=== PATIENT | female | born 1995 | race Caucasian/White ===

== ENCOUNTER 2017-08-05 12:21 | Inpatient (IN) | payer MEDICAID, OTHER ==
[~2017-08-05] VITALS: Ht 165.1 cm; Wt 57.5 kg
[2017-08-05 08:35] VITALS: BP 127/72
[2017-08-05 13:15] LABS: BASOPHILS % (AUTO) 0 % (0-1); EOSINOPHILS # (AUTO) 0.1 X10'3 (0-0.9); EOSINOPHILS % (AUTO) 0.4 % (0-6); HEMATOCRIT 36.1 % (35.0-45.0); HEMOGLOBIN 12.5 g/dl (12.0-16.0); MEAN CORPUSCULAR HEMOGLOBIN 28.5 PG (27.0-31.0); MEAN CORPUSCULAR HGB CONC 34.7 % (33.0-36.5); MEAN CORPUSCULAR VOLUME 82.2 FL (78-98); MEAN PLATELET VOLUME 7.7 FL (7.4-10.4); MONOCYTES % (AUTO) 3.7 % (2-12); NEUTROPHILS # (AUTO) 23.9 X10'3 (1.8-7.7); NEUTROPHILS % (AUTO) 91.9 % (42-75); PLATELET COUNT 275 X10'3 (140-440); RED BLOOD COUNT 4.39 X10'6 (4.20-5.60); RED CELL DISTRIBUTION WIDTH 13.8 % (11.5-14.5)
[2017-08-05 13:16] LABS: COLOR,URINE YELLOW (Yellow); GLUCOSE, URINE NEGATIVE (Neg); LEUKOCYTE ESTERASE ,URINE NEGATIVE (Neg); NITRITES, URINE NEGATIVE (Neg); PH,URINE 5.5 (4.8-8.0); UROBILINOGEN,URINE 0.2 E.U/dL (0.2-1.0)
[2017-08-05 13:22] LABS: URINE HCG NEGATIVE (NEG)
[2017-08-05 13:24] LABS: INR 1.2 INR; PROTHROMBIN TIME 12.2 SECONDS (9.0-12.0)
[2017-08-05 13:29] LABS: ALANINE AMINOTRANSFERASE 19 U/L (12-78); ALBUMIN 3.7 G/DL (3.4-5.0); ALBUMIN/GLOBULIN RATIO 0.8 (1.1-1.5); ALKALINE PHOSPHATASE 59 IU/L (46-116); ANION GAP 13 (8-16); ASPARTATE AMINO TRANSFERASE 11 U/L (10-37); BILIRUBIN,TOTAL 0.4 MG/DL (0.1-1.0); BLOOD UREA NITROGEN 11 MG/DL (7-18); BUN/CREATININE RATIO 8.8 (6.6-38.0); CALCIUM 9.1 MG/DL (8.5-10.1); CHLORIDE 99 MMOL/L (99-107); CREATININE 1.25 MG/DL (0.40-0.90); GLUCOSE 125 MG/DL (70-104); POTASSIUM 3.6 MMOL/L (3.5-5.1); SODIUM 138 MMOL/L (135-145); TOTAL CARBON DIOXIDE 25.7 MMOL/L (24-32); TOTAL PROTEIN 8.4 G/DL (6.4-8.2); eGFR 53 ML/MIN
[2017-08-05 13:32] LABS: CLARITY,URINE CLOUDY (Clear); KETONES,URINE 15 mg/dl (Neg); OCCULT BLOOD,URINE SMALL (Neg); PROTEIN,URINE 100 mg/dl (Neg)
[2017-08-05 13:40] LABS: UA COLLECTION TYPE CLN CATCH MIDSTREAM
[2017-08-05 13:41] LABS: MUCUS STRANDS MANY /LPF (Neg); SQUAMOUS EPITHELIAL CELL,UR MANY /LPF (FEW)
[2017-08-05 13:42] LABS: FINE GRANULAR CAST 0-3 /LPF (NEGATIVE)
[2017-08-05 13:43] LABS: BACTERIA,URINE 2+ /HPF (Neg)
[2017-08-05 13:44] LABS: RBC,URINE 0-2 /HPF (0-2); WBC CLUMPS,URINE FEW /HPF (NEGATIVE)
[2017-08-05] MEDS ORDERED: normal saline 1000ML IV soln IV ONE (13:55)
[2017-08-05] MEDS ORDERED: CefTRIAXone 2gm/D5W 50ml 50 ML IV ONE (13:55)
[2017-08-05] MEDS ORDERED: proCHLORperazine 10 MG/2 ml inj IV ONE (14:00)
[2017-08-05] MEDS ORDERED: morphine 10mg/ml inj. IV ONE (14:00)
[2017-08-05] MEDS ORDERED: morphine 4 MG/ML inj SYRINge IV ONE (14:00)
[2017-08-05] MEDS ORDERED: acetaminophen 325mg tablet PO ONE (14:30)
[2017-08-05 14:50] LABS: PLATELET ESTIMATE NORMAL; TOTAL CELLS COUNTED 100
[2017-08-05] MEDS ORDERED: NO HOME MEDS (15:26)
[2017-08-05 16:32] LABS: CLARITY,URINE CLEAR (Clear); COLOR,URINE STRAW (Yellow); GLUCOSE, URINE NEGATIVE (Neg); KETONES,URINE NEGATIVE (Neg); LEUKOCYTE ESTERASE ,URINE TRACE (Neg); NITRITES, URINE NEGATIVE (Neg); OCCULT BLOOD,URINE TRACE-INTACT (Neg); PROTEIN,URINE NEGATIVE (Neg); UROBILINOGEN,URINE 0.2 E.U/dL (0.2-1.0)
[2017-08-05 16:33] LABS: UA COLLECTION TYPE CLN CATCH MIDSTREAM
[2017-08-05 16:44] LABS: BACTERIA,URINE FEW /HPF (Neg); MUCUS STRANDS NONE SEEN /LPF (Neg); RBC,URINE 0-2 /HPF (0-2); SQUAMOUS EPITHELIAL CELL,UR FEW /LPF (FEW)
[2017-08-05] MEDS ORDERED: acetaminophen 325mg tablet PO PRN (17:20)
[2017-08-05] MEDS ORDERED: magnesium hydroxide 30ml (MOM) UD suspension PO PRN (17:20)
[2017-08-05] MEDS ORDERED: mag hydrox/Alum hydrox/simeth 30ml oral suspension PO PRN (17:20)
[2017-08-05] MEDS: normal saline 1000ml 1,000 ML IV SCH (17:44)
[2017-08-05] MEDS ORDERED: normal saline 1000ml 1,000 ML IVB ONE (19:20)
[2017-08-05] MEDS ORDERED: normal saline 1000ml 1,000 ML IV ONE (19:20)
[2017-08-05 19:59] LABS: URINE AMPHETAMINE SCREEN NEGATIVE (Neg); URINE BARBITUATE SCREEN NEGATIVE (Neg); URINE BENZODIAZEPINES SCREEN NEGATIVE (Neg); URINE CANNABINOID SCREEN POSITIVE (Neg); URINE COCAINE SCREEN NEGATIVE (Neg); URINE METHADONE SCREEN NEGATIVE (Neg); URINE OPIATE SCREEN NEGATIVE (Neg); URINE PHENCYCLIDINE SCREEN NEGATIVE (Neg)
[2017-08-05 20:07] LABS: CREATINE KINASE 41 U/L (26-192); LIPASE < 50 U/L (73-393); MAGNESIUM 1.5 MG/DL (1.5-2.4); PHOSPHORUS 2.2 MG/DL (2.3-4.5)
[2017-08-05] MEDS: HYDROcodone/acetaminophen 5mg/325mg tablet PO PRN (21:28)
[2017-08-05 22:00] VITALS: BP 124/66
[2017-08-05] MEDS ORDERED: dextrose 5% water 500ml 500 ML IV ONE (22:40)
[2017-08-05] MEDS ORDERED: normal saline 500ml IV soln 500 ML IV ONE ×2 (23:10→23:35)
[2017-08-06] MEDS: normal saline 1000ml 1,000 ML IV SCH ×2 (00:02→13:18)
[2017-08-06 01:43] VITALS: BP 102/68
[2017-08-06] MEDS: acetaminophen 325mg tablet PO PRN ×2 (02:13→08:43)
[2017-08-06] MEDS: HYDROcodone/acetaminophen 5mg/325mg tablet PO PRN ×3 (03:21→20:35)
[2017-08-06 05:52] LABS: BASOPHILS % (AUTO) 0.2 % (0-1); EOSINOPHILS % (AUTO) 0 % (0-6); HEMATOCRIT 27.1 % (35.0-45.0); HEMOGLOBIN 9.3 g/dl (12.0-16.0); LYMPHOCYTES # (AUTO) 1.3 X10'3 (1.1-4.8); LYMPHOCYTES % (AUTO) 7.5 % (21-51); MEAN CORPUSCULAR HEMOGLOBIN 28.1 PG (27.0-31.0); MEAN CORPUSCULAR HGB CONC 34.2 % (33.0-36.5); MEAN CORPUSCULAR VOLUME 82.3 FL (78-98); MEAN PLATELET VOLUME 8.7 FL (7.4-10.4); MONOCYTES # (AUTO) 1.8 X10'3 (0-0.9); MONOCYTES % (AUTO) 10.5 % (2-12); NEUTROPHILS # (AUTO) 14.1 X10'3 (1.8-7.7); NEUTROPHILS % (AUTO) 81.8 % (42-75); PLATELET COUNT 184 X10'3 (140-440); RED BLOOD COUNT 3.29 X10'6 (4.20-5.60); RED CELL DISTRIBUTION WIDTH 13.7 % (11.5-14.5); WHITE BLOOD COUNT 17.3 X10'3 (4.5-11.0)
[2017-08-06 06:00] VITALS: BP 108/67
[2017-08-06 06:16] LABS: ALBUMIN 2.5 G/DL (3.4-5.0); ANION GAP 11 (8-16); BLOOD UREA NITROGEN 5 MG/DL (7-18); BUN/CREATININE RATIO 5.6 (6.6-38.0); CALCIUM 7.5 MG/DL (8.5-10.1); CHLORIDE 106 MMOL/L (99-107); GLUCOSE 111 MG/DL (70-104); POTASSIUM 3.3 MMOL/L (3.5-5.1); SODIUM 138 MMOL/L (135-145); TOTAL CARBON DIOXIDE 21.5 MMOL/L (24-32); eGFR 78 ML/MIN
[2017-08-06 06:50] VITALS: BP 108/67
[2017-08-06] MEDS: ondansetron/PF 4mg/2ml inj IV PRN ×2 (07:24→13:02)
[2017-08-06 07:51] LABS: PLATELET ESTIMATE NORMAL; TOTAL CELLS COUNTED 100
[2017-08-06] MEDS ORDERED: potassium Cl 20 mEq SR tablet PO PRN (08:00)
[2017-08-06] MEDS ORDERED: CefTRIAXone 2gm/D5W 50ml 50 ML IV SCH (08:00)
[2017-08-06] MEDS ORDERED: potassium Cl 40MEQ/NS 500ml 500 ML IV PRN ×2 (08:00)
[2017-08-06 10:00] VITALS: BP 103/55
[2017-08-06] MEDS: potassium Cl 20 mEq SR tablet PO PRN ×3 (10:06→19:14)
[2017-08-06] MEDS ORDERED: pantoprazole 40mg Tablet.DR PO ONE (16:57)
[2017-08-06] MEDS: ibuprofen 200mg tablet PO PRN (17:13)
[2017-08-06] MEDS: proCHLORperazine 10 MG/2 ml inj IV PRN (17:13)
[2017-08-06 18:00] VITALS: BP 111/72
[2017-08-06] MEDS: lactobacillus rhamnosus 10,000 MMU CELLS/CAPSULE PO SCH (19:14)
[2017-08-06 22:00] VITALS: BP 90/55
[2017-08-07] MEDS: normal saline 1000ml 1,000 ML IV SCH ×3 (00:26→20:19)
[2017-08-07] MEDS: HYDROcodone/acetaminophen 5mg/325mg tablet PO PRN ×3 (04:00→17:21)
[2017-08-07] MEDS: ibuprofen 200mg tablet PO PRN ×2 (05:29→20:24)
[2017-08-07 06:00] VITALS: BP 124/72
[2017-08-07] MEDS: acetaminophen 325mg tablet PO PRN (06:48)
[2017-08-07] MEDS: pantoprazole 40mg Tablet.DR PO SCH (06:48)
[2017-08-07 07:05] LABS: BASOPHILS % (AUTO) 0.2 % (0-1); EOSINOPHILS # (AUTO) 0.1 X10'3 (0-0.9); EOSINOPHILS % (AUTO) 0.7 % (0-6); HEMATOCRIT 30.2 % (35.0-45.0); HEMOGLOBIN 10.3 g/dl (12.0-16.0); LYMPHOCYTES # (AUTO) 1.1 X10'3 (1.1-4.8); LYMPHOCYTES % (AUTO) 6.8 % (21-51); MEAN CORPUSCULAR HEMOGLOBIN 28.2 PG (27.0-31.0); MEAN CORPUSCULAR HGB CONC 34.1 % (33.0-36.5); MEAN CORPUSCULAR VOLUME 82.9 FL (78-98); MEAN PLATELET VOLUME 8.9 FL (7.4-10.4); MONOCYTES # (AUTO) 0.8 X10'3 (0-0.9); MONOCYTES % (AUTO) 5.3 % (2-12); NEUTROPHILS # (AUTO) 13.8 X10'3 (1.8-7.7); PLATELET COUNT 210 X10'3 (140-440); RED BLOOD COUNT 3.65 X10'6 (4.20-5.60); RED CELL DISTRIBUTION WIDTH 14.6 % (11.5-14.5); WHITE BLOOD COUNT 15.9 X10'3 (4.5-11.0)
[2017-08-07 07:17] LABS: ALBUMIN 2.5 G/DL (3.4-5.0); ANION GAP 10 (8-16); BLOOD UREA NITROGEN 7 MG/DL (7-18); BUN/CREATININE RATIO 8.8 (6.6-38.0); CALCIUM 8.6 MG/DL (8.5-10.1); CHLORIDE 107 MMOL/L (99-107); GLUCOSE 104 MG/DL (70-104); SODIUM 140 MMOL/L (135-145); TOTAL CARBON DIOXIDE 23.4 MMOL/L (24-32); eGFR 89 ML/MIN
[2017-08-07] MEDS: lactobacillus rhamnosus 10,000 MMU CELLS/CAPSULE PO SCH ×2 (07:24→20:15)
[2017-08-07] MEDS: ondansetron/PF 4mg/2ml inj IV PRN (07:24)
[2017-08-07] MEDS: CefTRIAXone inj 2,000 MG in normal saline 100ml IV soln 100 ML IV SCH (07:24)
[2017-08-07] MEDS: proCHLORperazine 10 MG/2 ml inj IV PRN ×3 (08:51→22:21)
[2017-08-07] MEDS: diatr meglu/diatrizoate 30ml oral sol.-(3 dose) bottle PO SCH ×3 (09:50→16:00)
[2017-08-07 10:00] VITALS: BP 117/68
[2017-08-07 10:04] LABS: TOTAL CELLS COUNTED 100
[2017-08-07 10:05] LABS: PLATELET ESTIMATE NORMAL; TOXIC GRANULATION 1+
[2017-08-07] MEDS ORDERED: diatr meglu/diatrizoate 30ml oral sol.-(3 dose) bottle PO SCH ×2 (12:00)
[2017-08-07 14:27] VITALS: BP 119/69
[2017-08-07] MEDS ORDERED: iohexol 300mg/ml 100ml inj. ONE (15:54)
[2017-08-07 18:00] VITALS: BP 123/80
[2017-08-07 22:00] VITALS: BP 120/83
[2017-08-08] MEDS: HYDROcodone/acetaminophen 5mg/325mg tablet PO PRN ×3 (00:15→16:49)
[2017-08-08 02:00] VITALS: BP 126/78
[2017-08-08] MEDS: proCHLORperazine 10 MG/2 ml inj IV PRN (04:53)
[2017-08-08] MEDS: normal saline 1000ml 1,000 ML IV SCH (05:00)
[2017-08-08 05:49] LABS: BASOPHILS % (AUTO) 0.4 % (0-1); EOSINOPHILS # (AUTO) 0.4 X10'3 (0-0.9); EOSINOPHILS % (AUTO) 3.2 % (0-6); HEMATOCRIT 30.6 % (35.0-45.0); HEMOGLOBIN 10.4 g/dl (12.0-16.0); LYMPHOCYTES # (AUTO) 1.9 X10'3 (1.1-4.8); LYMPHOCYTES % (AUTO) 15.9 % (21-51); MEAN CORPUSCULAR HEMOGLOBIN 28.1 PG (27.0-31.0); MEAN CORPUSCULAR HGB CONC 33.9 % (33.0-36.5); MEAN CORPUSCULAR VOLUME 82.9 FL (78-98); MEAN PLATELET VOLUME 8.7 FL (7.4-10.4); MONOCYTES # (AUTO) 0.9 X10'3 (0-0.9); MONOCYTES % (AUTO) 7.6 % (2-12); NEUTROPHILS # (AUTO) 8.8 X10'3 (1.8-7.7); NEUTROPHILS % (AUTO) 72.9 % (42-75); PLATELET COUNT 242 X10'3 (140-440); RED CELL DISTRIBUTION WIDTH 14.6 % (11.5-14.5); WHITE BLOOD COUNT 12.1 X10'3 (4.5-11.0)
[2017-08-08 06:00] VITALS: BP 122/77
[2017-08-08 06:28] LABS: ALBUMIN 2.5 G/DL (3.4-5.0); ANION GAP 15 (8-16); BLOOD UREA NITROGEN 5 MG/DL (7-18); BUN/CREATININE RATIO 7.6 (6.6-38.0); CALCIUM 8.9 MG/DL (8.5-10.1); CHLORIDE 106 MMOL/L (99-107); CREATININE 0.66 MG/DL (0.40-0.90); GLUCOSE 81 MG/DL (70-104); POTASSIUM 3.5 MMOL/L (3.5-5.1); SODIUM 142 MMOL/L (135-145); TOTAL CARBON DIOXIDE 20.8 MMOL/L (24-32); eGFR > 90 ML/MIN
[2017-08-08] MEDS: lactobacillus rhamnosus 10,000 MMU CELLS/CAPSULE PO SCH ×2 (08:51→20:00)
[2017-08-08] MEDS: ibuprofen 200mg tablet PO PRN (08:51)
[2017-08-08] MEDS: pantoprazole 40mg Tablet.DR PO SCH (08:51)
[2017-08-08] MEDS: CefTRIAXone inj 2,000 MG in normal saline 100ml IV soln 100 ML IV SCH (09:17)
[2017-08-08] MEDS: doxycycline hyclate 100mg tablet.DR PO SCH ×2 (09:17→16:49)
[2017-08-08 10:00] VITALS: BP 129/75
[2017-08-08] MEDS: metoclopramide 10mg tablet PO SCH ×2 (13:32→16:48)
[2017-08-08 15:00] VITALS: BP 116/77
[2017-08-08] MEDS: Potassium Cl inj 10 MEQ in normal saline 1000ml 1,000 ML IV SCH (16:49)
[2017-08-08 18:00] VITALS: BP 138/86
[2017-08-08] MEDS: ondansetron/PF 4mg/2ml inj IV PRN (20:53)
[2017-08-08 22:00] VITALS: BP 130/81
[2017-08-08] MEDS: acetaminophen 325mg tablet PO PRN (22:27)
[2017-08-09] MEDS: HYDROcodone/acetaminophen 5mg/325mg tablet PO PRN (03:41)
[2017-08-09] MEDS: ondansetron/PF 4mg/2ml inj IV PRN (04:23)
[2017-08-09] MEDS: Potassium Cl inj 10 MEQ in normal saline 1000ml 1,000 ML IV SCH (04:27)
[2017-08-09 05:33] LABS: BASOPHILS % (AUTO) 0.3 % (0-1); EOSINOPHILS # (AUTO) 0.3 X10'3 (0-0.9); EOSINOPHILS % (AUTO) 4.7 % (0-6); HEMATOCRIT 24.9 % (35.0-45.0); HEMOGLOBIN 8.5 g/dl (12.0-16.0); LYMPHOCYTES # (AUTO) 1.4 X10'3 (1.1-4.8); LYMPHOCYTES % (AUTO) 21.5 % (21-51); MEAN CORPUSCULAR HEMOGLOBIN 28.1 PG (27.0-31.0); MEAN CORPUSCULAR HGB CONC 34.1 % (33.0-36.5); MEAN CORPUSCULAR VOLUME 82.5 FL (78-98); MEAN PLATELET VOLUME 7.7 FL (7.4-10.4); MONOCYTES # (AUTO) 0.7 X10'3 (0-0.9); MONOCYTES % (AUTO) 10.1 % (2-12); NEUTROPHILS # (AUTO) 4.1 X10'3 (1.8-7.7); NEUTROPHILS % (AUTO) 63.4 % (42-75); PLATELET COUNT 233 X10'3 (140-440); RED BLOOD COUNT 3.02 X10'6 (4.20-5.60); RED CELL DISTRIBUTION WIDTH 14.4 % (11.5-14.5); WHITE BLOOD COUNT 6.5 X10'3 (4.5-11.0)
[2017-08-09 06:13] LABS: ALBUMIN 2.3 G/DL (3.4-5.0); ANION GAP 11 (8-16); BLOOD UREA NITROGEN 3 MG/DL (7-18); BUN/CREATININE RATIO 4.4 (6.6-38.0); CALCIUM 8.4 MG/DL (8.5-10.1); CHLORIDE 106 MMOL/L (99-107); CREATININE 0.68 MG/DL (0.40-0.90); GLUCOSE 103 MG/DL (70-104); POTASSIUM 3.3 MMOL/L (3.5-5.1); SODIUM 140 MMOL/L (135-145); eGFR > 90 ML/MIN
[2017-08-09 06:34] VITALS: BP 133/88
[2017-08-09] MEDS: doxycycline hyclate 100mg tablet.DR PO SCH (07:23)
[2017-08-09] MEDS: metoclopramide 10mg tablet PO SCH (07:23)
[2017-08-09] MEDS: pantoprazole 40mg Tablet.DR PO SCH (07:24)
[2017-08-09] MEDS: lactobacillus rhamnosus 10,000 MMU CELLS/CAPSULE PO SCH (07:25)
[2017-08-09] MEDS: CefTRIAXone inj 2,000 MG in normal saline 100ml IV soln 100 ML IV SCH (08:17)
[2017-08-09] MEDS ORDERED: metoclopramide 10mg tablet PO ONE (09:20)
[2017-08-09 09:42] LABS: BASOPHILS % (AUTO) 0.3 % (0-1); EOSINOPHILS # (AUTO) 0.4 X10'3 (0-0.9); EOSINOPHILS % (AUTO) 4.6 % (0-6); HEMATOCRIT 28.7 % (35.0-45.0); HEMOGLOBIN 9.7 g/dl (12.0-16.0); MEAN CORPUSCULAR HEMOGLOBIN 27.8 PG (27.0-31.0); MEAN CORPUSCULAR HGB CONC 33.8 % (33.0-36.5); MEAN CORPUSCULAR VOLUME 82.3 FL (78-98); MEAN PLATELET VOLUME 7.4 FL (7.4-10.4); MONOCYTES # (AUTO) 0.7 X10'3 (0-0.9); MONOCYTES % (AUTO) 9.8 % (2-12); NEUTROPHILS # (AUTO) 4.5 X10'3 (1.8-7.7); NEUTROPHILS % (AUTO) 59.3 % (42-75); PLATELET COUNT 343 X10'3 (140-440); RED BLOOD COUNT 3.49 X10'6 (4.20-5.60); RED CELL DISTRIBUTION WIDTH 14.7 % (11.5-14.5); WHITE BLOOD COUNT 7.6 X10'3 (4.5-11.0)
[2017-08-09] MEDS ORDERED: METO10TA3 PO (11:38)
[2017-08-09] MEDS ORDERED: DOXY-200 PO (11:38)
[2017-08-09] MEDS ORDERED: OMEP20TA23 PO (11:38)
[2017-08-09] MEDS ORDERED: POTA20TA19 PO (11:40)
== END 2017-08-09 12:10 | disposition home or self-care (01) | DRG 720 ==
LOC: ER 12:22 → ED HOLD 17:18 → ORTHO 4S 20:35
PROVIDERS: ADMIT Family Medicine; ATTEND Internal Medicine
PROC: BW211ZZ Computerized Tomography (CT Scan) of Abdomen and Pelvis using Low Osmolar Contrast (ICD-10-PCS; principal; 2017-08-07)
DX: A41.9 Sepsis, unspecified organism (principal); N17.9 Acute kidney failure, unspecified; E86.0 Dehydration; E87.6 Hypokalemia; N39.0 Urinary tract infection, site not specified; K29.00 Acute gastritis without bleeding; N12 Tubulo-interstitial nephritis, not specified as acute or chronic; N83.00 Follicular cyst of ovary, unspecified side; Z88.1 Allergy status to other antibiotic agents; Z87.440 Personal history of urinary (tract) infections
CPT/HCPCS: 36415; 71045; 74176; 74177; 76856; 80048; 80053; 80305; 81001; 81025; 82550; 83605; 83690; 83735; 83880; 84100; 84145; 84443; 84484; 85025; 85379; 85610; 87040; 87070; 87088; 99285; A4315; J0696; J0780; J2405; J3480; J7030; J7060; J8597; Q9963; Q9967

== ENCOUNTER 2023-03-29 11:19 | Emergency (ER) | payer MEDICAID, OTHER ==
[~2023-03-29] VITALS: Ht 170.2 cm; Wt 54.9 kg
[~2023-03-29 11:19] MED LIST: DOXY-243 PO; METO10TA3 PO; NITR100C6 PO; OMEP20TA23 PO
[2023-03-29 12:05] LABS: BASOPHILS % (AUTO) 0.6 % (0-1); EOSINOPHILS # (AUTO) 0.2 X10'3 (0-0.9); EOSINOPHILS % (AUTO) 2.2 % (0-6); HEMOGLOBIN 12.5 g/dl (12.0-16.0); LYMPHOCYTES # (AUTO) 1.3 X10'3 (1.1-4.8); LYMPHOCYTES % (AUTO) 18.6 % (21-51); MEAN CORPUSCULAR HEMOGLOBIN 29.7 PG (27.0-31.0); MEAN CORPUSCULAR HGB CONC 33.9 g/dL (33.0-36.5); MEAN CORPUSCULAR VOLUME 87.7 FL (78-98); MEAN PLATELET VOLUME 8.2 FL (7.4-10.4); MONOCYTES # (AUTO) 0.4 X10'3 (0-0.9); MONOCYTES % (AUTO) 6.3 % (2-12); NEUTROPHILS % (AUTO) 72.3 % (42-75); PLATELET COUNT 254 X10'3 (140-440); RED BLOOD COUNT 4.22 X10'6 (4.20-5.60); RED CELL DISTRIBUTION WIDTH 12.8 % (11.5-14.5); WHITE BLOOD COUNT 6.9 X10'3 (4.5-11.0)
[2023-03-29 12:18] LABS: ALANINE AMINOTRANSFERASE 17 U/L (12-78); ALBUMIN/GLOBULIN RATIO 1.2 (1.1-1.5); ALKALINE PHOSPHATASE 38 IU/L (46-116); ANION GAP 8 (8-16); ASPARTATE AMINO TRANSFERASE 11 U/L (10-37); BILIRUBIN,TOTAL 0.5 MG/DL (0.1-1.0); BLOOD UREA NITROGEN 11 MG/DL (7-18); BUN/CREATININE RATIO 13.3 (10.0-20.0); CALCIUM 8.7 MG/DL (8.5-10.1); CHLORIDE 104 MMOL/L (99-107); CREATININE 0.83 MG/DL (0.40-0.90); GLUCOSE 96 MG/DL (70-104); LIPASE 21 U/L (16-77); POTASSIUM 4.3 MMOL/L (3.5-5.1); SODIUM 137 MMOL/L (135-145); TOTAL CARBON DIOXIDE 24.9 MMOL/L (24-32); TOTAL PROTEIN 7.3 G/DL (6.4-8.2); eCRCL 87 ML/MIN; eGFR 81 ML/MIN
[2023-03-29 13:45] LABS: URINE HCG NEGATIVE (NEG)
[2023-03-29 14:00] LABS: BILIRUBIN,URINE NEGATIVE (Neg); CLARITY,URINE CLOUDY (Clear); COLOR,URINE YELLOW (Yellow); GLUCOSE, URINE NEGATIVE (Neg); KETONES,URINE NEGATIVE (Neg); LEUKOCYTE ESTERASE ,URINE NEGATIVE (Neg); NITRITES, URINE NEGATIVE (Neg); OCCULT BLOOD,URINE TRACE-INTACT (Neg); PROTEIN,URINE NEGATIVE (Neg); UROBILINOGEN,URINE 0.2 E.U/dL (0.2-1.0)
[2023-03-29 14:05] LABS: UA COLLECTION TYPE CLN CATCH MIDSTREAM
[2023-03-29 14:06] LABS: BACTERIA,URINE 1+ /HPF (Neg); MUCUS STRANDS MODERATE /LPF (Neg); SQUAMOUS EPITHELIAL CELL,UR MANY /LPF (FEW); TRANSITIONAL EPI CELLS,URINE MODERATE /HPF
[2023-03-29 14:07] LABS: RBC,URINE 0-2 /HPF (0-2); WBC,URINE 0-4 /HPF (0-4)
[2023-03-29] MEDS ORDERED: IBUP-1984 PO (15:19)
[2023-03-29 18:55] VITALS: BP 121/56; PULSE 78; RESP 16; TEMP 98.7; O2SAT 99
== END 2023-03-29 18:57 | disposition home or self-care (01) ==
LOC: ER 11:19
DX: R10.30 Lower abdominal pain, unspecified (principal); Z88.1 Allergy status to other antibiotic agents; Z79.2 Long term (current) use of antibiotics; Z79.899 Other long term (current) drug therapy
CPT/HCPCS: 36415; 74176; 80053; 81001; 81025; 83690; 85025; 99284